=== PATIENT | female | born 1995 | race Caucasian/White ===

== ENCOUNTER 2019-02-06 04:05 | Emergency (ER) | payer BC ==
[2019-02-06 06:45] LABS: ABSOLUTE BASOPHILS # (AUTO) 0.1 10^3/uL (0.0-0.2); ABSOLUTE EOSINOPHILS # (AUTO) 0.2 10^3/uL (0.0-0.6); ABSOLUTE MONOCYTES (AUTO) 0.8 10^3/uL (0.1-1.4); ABSOLUTE NEUT (AUTO) 7.7 10^3/uL (1.7-8.2); BASOPHILS % (AUTO) 0.5 % (0-2); EOSINOPHILS % (AUTO) 1.5 % (0-6); HEMATOCRIT 41.5 % (36.0-47.0); HEMOGLOBIN 13.8 g/dL (12.0-15.5); LYMPHOCYTES % (AUTO) 18.6 % (13-45); MEAN CORPUSCULAR HEMOGLOBIN 26.1 pg (27.0-33.4); MEAN CORPUSCULAR HGB CONC 33.3 g/dL (32.0-36.0); MEAN CORPUSCULAR VOLUME 78 fl (80-97); MONOCYTES % (AUTO) 7.1 % (3-13); PLATELET COUNT 189 10^3/uL (150-450); RED BLOOD COUNT 5.29 10^6/uL (3.72-5.28); RED CELL DISTRIBUTION WIDTH 13.9 % (11.5-14.0); SEGMENTED NEUTROPHILS % (AUTO) 72.3 % (42-78); TOTAL CELLS COUNTED % (AUTO) 100 %; WHITE BLOOD COUNT 10.7 10^3/uL (4.0-10.5)
[2019-02-06 06:55] LABS: ALANINE AMINOTRANSFERASE 35 U/L (9-52); ALBUMIN 4.4 g/dL (3.5-5.0); ALKALINE PHOSPHATASE 73 U/L (38-126); ANION GAP 11 (5-19); ASPARTATE AMINO TRANSFERASE 23 U/L (14-36); BILIRUBIN,DIRECT 0.3 mg/dL (0.0-0.4); BILIRUBIN,TOTAL 0.4 mg/dL (0.2-1.3); BLOOD UREA NITROGEN 9 mg/dL (7-20); CALCIUM 10.3 mg/dL (8.4-10.2); CARBON DIOXIDE 26 mmol/L (22-30); CHLORIDE 102 mmol/L (98-107); GLUCOSE 90 mg/dL (75-110); LIPASE 65.3 U/L (23-300); POTASSIUM 4.2 mmol/L (3.6-5.0); SODIUM 138.6 mmol/L (137-145); TOTAL PROTEIN 7.2 g/dL (6.3-8.2)
[2019-02-06 07:17] LABS: APPEARANCE,URINE CLOUDY; BILIRUBIN,URINE NEGATIVE (NEGATIVE); CALCIUM OXALATE CRYSTALS,URINE MANY /HPF; COLOR,URINE YELLOW; GLUCOSE, URINE NEGATIVE (NEGATIVE); KETONES,URINE NEGATIVE (NEGATIVE); LEUKOCYTE ESTERASE,URINE NEGATIVE (NEGATIVE); NITRITE,URINE NEGATIVE (NEGATIVE); PROTEIN,URINE NEGATIVE (NEGATIVE); URINE SPECIFIC GRAVITY 1.012; UROBILINOGEN,URINE NEGATIVE mg/dL (<2.0)
--- NOTE | 2019-02-06 07:46 | ER Document Report ---
ED Medical Screen (RME) - General Chief Complaint: Abdominal Pain Stated Complaint: ABDOMINAL PAIN, DIARRHEA Time Seen by Provider: 02/06/19 07:37 Notes: Patient is a 23-year-old female who presents emergency department with a chief complaint of abdominal and pelvic pain. She states that her pain started yesterday and she ended up having diarrhea this morning. She states that her diarrhea is pink and watery. She also states that she has back pain. Her last menstrual cycle was in November. She does have the Nexplanon control and st ates that her menstrual cycles are irregular. She took a home test this morning and it was negative. She does feel nauseous, but has not vomited. She also states that she did not have a bowel movement for weekend now she has diarrhea. Exam: Mild tenderness in all abdominal quadrants. I have greeted and performed a rapid initial assessment of this patient. A comprehensive ED assessment and evaluation of the patient, analysis of test results and completion of medical decision making process will be conducted by an additional ED providers. TRAVEL OUTSIDE OF THE [place] IN LAST 30 DAYS: No - Related Data Allergies/Adverse Reactions: doxycycline Allergy (Verified 02/06/19 06:56) Sulfa (Sulfonamide Antibiotics) Allergy (Verified 02/06/19 06:56) Past Medical History - Social History Chew tobacco use (# tins/day): No Frequency of alcohol use: None Drug Abuse: None Renal/ Medical History: Denies: Hx Peritoneal Dialysis Physical Exam - Vital signs Vitals: Temp Pulse Pulse Ox 98.5 F 101 H 96 02/06/19 04:17 02/06/19 04:17 02/06/19 04:17 Course - Vital Signs Vital signs: Temp Pulse Resp BP Pulse Ox 98.5 F 90 134/86 H 100 02/06/19 04:18 02/06/19 05:38 02/06/19 05:38 02/06/19 05:38 - Laboratory Result Diagrams: 02/06/19 05:54 02/06/19 05:54 Laboratory results interpreted by me: 02/06/19 02/06/19 05:54 05:54 WBC 10.7 H RBC 5.29 H MCV 78 L MCH 26.1 L Calcium 10.3 H
--- NOTE | 2019-02-06 08:45 | ER Document Report ---
ED General - General Chief Complaint: Abdominal Pain Stated Complaint: ABDOMINAL PAIN, DIARRHEA Time Seen by Provider: 02/06/19 07:37 Mode of Arrival: Ambulatory Information source: Patient Notes: Patient presents emergency department with complaints of constipation for the past week and a half and then last night she had 3 episodes of diarrhea and noted the last episode as pink blood-tinged. She denies fever vomiting. Reports she usually has a bowel movement every other day or once a day. Reports abdominal pain. Denies past medical history of IBS Crohn's. Reports she is been eating drinking as normal. Declines antinausea medicine. TRAVEL OUTSIDE OF THE [place] IN LAST 30 DAYS: No - HPI Onset: Last week Onset/Duration: Persistent Quality of pain: Cramping Severity: Severe Pain Level: 4 Associated symptoms: Diarrhea, Nausea Exacerbated by: Denies Relieved by: Denies - Related Data Allergies/Adverse Reactions: doxycycline Allergy (Verified 02/06/19 06:56) Sulfa (Sulfonamide Antibiotics) Allergy (Verified 02/06/19 06:56) Past Medical History - General Last Menstrual Period: november - Social History Smoking Status: Never Smoker Chew tobacco use (# tins/day): No Frequency of alcohol use: None Drug Abuse: None Family History: None Patient has suicidal ideation: No Patient has homicidal ideation: No Endocrine Medical History: Reports: Hx Hypothyroidism Renal/ Medical History: Denies: Hx Peritoneal Dialysis GI Medical History: Denies: Hx Crohn's Disease, Hx Irritable Bowel Surgical Hx: Negative Review of Systems - Review of Systems Notes: Review HPI for review of systems., All other systems negative Physical Exam - Vital signs Vitals: Temp Pulse Pulse Ox 98.5 F 101 H 96 02/06/19 04:17 02/06/19 04:17 02/06/19 04:17 - Notes Notes: PHYSICAL EXAMINATION: GENERAL: Well-appearing and in no acute distress laughing with friend at bedside HEAD: Atraumatic, normocephalic. EYES: Pupils equal round and reactive to light, extraocular movements intact, sclera anicteric, conjunctiva are normal. ENT: nares patent, oropharynx clear without exudates. Moist mucous membranes. NECK: Normal range of motion, supple without lymphadenopathy LUNGS: CTAB and equal. No wheezes rales or rhonchi. HEART: Regular rate and rhythm without murmurs ABDOMEN: Soft, no tenderness. No guarding, no rebound denies pain when palpated EXTREMITIES: Normal range of motion, no pitting edema. No cyanosis. NEUROLOGICAL: Cranial nerves grossly intact. PSYCH: Normal mood, normal affect. SKIN: Warm, Dry, normal turgor, no rashes or lesions noted - Rectal Tenderness: No Stool: Heme negative Course - Re-evaluation Re-evalutation: 02/06/19 08:45 Labs unremarkable rectal negative for bleed 02/06/19 09:55 KUB negative patient has not had any further diarrhea since arrival. Patient is laughing happy having fun with her friend at the bedside. She will be discharged on instructions on huli-fxi-lnvyuad antidiarrhea as indicated follow- up with her primary care provider, for further symptoms return to the emergency department Dictation of this chart was performed using voice recognition software; therefore, there may be some unintended grammatical errors. - Vital Signs Vital signs: Temp Pulse Resp BP Pulse Ox 98.5 F 90 134/86 H 100 02/06/19 04:18 02/06/19 05:38 02/06/19 05:38 02/06/19 05:38 - Laboratory Result Diagrams: 02/06/19 05:54 02/06/19 05:54 Laboratory results interpreted by me: 02/06/19 02/06/19 05:54 05:54 WBC 10.7 H RBC 5.29 H MCV 78 L MCH 26.1 L Calcium 10.3 H - Diagnostic Test Radiology reviewed: Image reviewed, Reports reviewed - EXAM DESCRIPTION: KUB/ABDOMEN (SINGLE VIEW) COMPLETED DATE/TIME: 02/06/2019 9:14 am REASON FOR STUDY: abd pain, hx constipation COMPARISON: None. NUMBER OF VIEWS: One view. TECHNIQUE: Supine radiographic image of the abdomen acquired. LIMITATIONS: None. FINDINGS: BOWEL GAS PATTERN: Normal bowel gas pattern. No dilated loops. CALCIFICATIONS: No suspicious calcifications. SOFT TISSUES: No gross mass or suggestion of organomegaly. HARDWARE: None in the abdomen. BONES: No acute fracture. No worrisome bone lesions. OTHER: No other signi ficant finding. IMPRESSION: NO RADIOGRAPHIC EVIDENCE FOR ACUTE ABDOMINAL DISEASE. Discharge - Discharge Clinical Impression: Abdominal pain Qualifiers: Abdominal location: generalized Qualified Code(s): R10.84 - Generalized abdominal pain Diarrhea Qualifiers: Diarrhea type: unspecified type Qualified Code(s): R19.7 - Diarrhea, unspecified Condition: Stable Disposition: HOME, SELF-CARE Instructions: Abdominal Pain ([facility]), Diarrhea, Nonspecific ([facility]), Family Physicians / Practices, OTC Antidiarrhea Medication ([facility]) Additional Instructions: *You have been evaluated for abdominal pain, diarrhea *Take OTC medication as indicated for diarrhea *Follow up with a primary care provider within one week for recheck *Return to ED for worsening condition, changes, needs *Return to ED if not better in 24 hours Monitor your blood pressure. Your blood pressure was elevated today. This may be because you were anxious, in pain or because you need medication. It is important to follow up with your primary care provider for full evaluation. Forms: Elevated Blood Pressure
--- NOTE | 2019-02-06 09:24 | RADIOLOGY REPORT (SQ) ---
EXAM DESCRIPTION: KUB/ABDOMEN (SINGLE VIEW) COMPLETED DATE/TIME: 02/06/2019 9:14 am REASON FOR STUDY: abd pain, hx constipation COMPARISON: None. NUMBER OF VIEWS: One view. TECHNIQUE: Supine radiographic image of the abdomen acquired. LIMITATIONS: None. FINDINGS: BOWEL GAS PATTERN: Normal bowel gas pattern. No dilated loops. CALCIFICATIONS: No suspicious calcifications. SOFT TISSUES: No gross mass or suggestion of organomegaly. HARDWARE: None in the abdomen. BONES: No acute fracture. No worrisome bone lesions. OTHER: No other significant finding. IMPRESSION: NO RADIOGRAPHIC EVIDENCE FOR ACUTE ABDOMINAL DISEASE. TECHNICAL DOCUMENTATION: JOB ID: [id number] [employer]- All Rights Reserved Reading location - IP/workstation name: [email or web address]
[2019-02-06 10:36] VITALS: BP 139/91
== END 2019-02-06 10:36 | disposition home or self-care (01) ==
LOC: ER 04:05
DX: R10.84 Generalized abdominal pain (principal); R19.7 Diarrhea, unspecified; Z88.1 Allergy status to other antibiotic agents; Z88.2 Allergy status to sulfonamides; E03.9 Hypothyroidism, unspecified
CPT/HCPCS: 36415; 74018; 80053; 81001; 81025; 83690; 85025; 99284

== ENCOUNTER 2019-02-09 17:31 | Emergency (ER) | payer BC ==
[2019-02-09] MEDS ORDERED: ONDANSETRON 4 MG TAB.RAPDIS PO ONE (20:13)
--- NOTE | 2019-02-09 20:13 | ER Document Report ---
ED Medical Screen (RME) - General Chief Complaint: Abdominal Pain Stated Complaint: ABDOMINAL PAIN Time Seen by Provider: 02/09/19 20:06 TRAVEL OUTSIDE OF THE [place] IN LAST 30 DAYS: No - HPI Notes: 02/09/19 20:12 Patient is a 23-year-old female no significant past medical history who presents complaining of "early symptoms." Patient states that she has been having nausea, vomiting, breast tenderness, mood changes over the past several days. Patient states that she is living with a friend who is 6 months and patient is here requesting a blood test as she has had negative tests at home with her urine. Patient states that she is also having lower pelvic pains without any vaginal discharge, odor, or bleeding. Her last menstrual cycle was in November, but she is usually irregular. She is otherwise urinating normally and is no longer having diarrhea from her visit 3 days ago that was noted then. Denies MOTLEY, fever, neck pain, URI, CP, SOB, dysuria, back pain, or rash. I have treated and performed a rapid initial assessment of this patient. A comprehensive ED assessment and evaluation of the patient, analysis of test results and completion of medical decision making process will be conducted by additional ED providers. PHYSICAL EXAMINATION: GENERAL: Well-appearing, well-nourished and in no acute distress. A&Ox4. Answers questions appropriately. LUNGS: Breath sounds clear to auscultation bilaterally and equal. No wheezes rales or rhonchi. HEART: Regular rate and rhythm without murmurs, rubs, gallops. ABDOMEN: Obese. Soft, nondistended abdomen. No guarding, no rebound. Normal bowel sounds present. No CVA tenderness bilaterally. + mild lower abd tenderness (cannot elicit thorough abd exam w/o bed, however). - Related Data Allergies/Adverse Reactions: doxycycline Allergy (Verified 02/06/19 06:56) Sulfa (Sulfonamide Antibiotics) Allergy (Verified 02/06/19 06:56) Past Medical History - Social History Chew tobacco use (# tins/day): No Frequency of alcohol use: Social Drug Abuse: None Endocrine Medical History: Reports: Hx Hypothyroidism Renal/ Medical History: Denies: Hx Peritoneal Dialysis GI Medical History: Denies: Hx Crohn's Disease, Hx Irritable Bowel Psychiatric Medical History: Reports: Hx Bipolar Disorder Physical Exam - Vital signs Vitals: Temp Pulse Resp BP Pulse Ox 98.0 F 86 20 154/96 H 100 02/09/19 18:25 02/09/19 18:25 02/09/19 18:25 02/09/19 18:25 02/09/19 18:25 Course - Vital Signs Vital signs: Temp Pulse Resp BP Pulse Ox 98.0 F 86 20 154/96 H 100 02/09/19 18:25 02/09/19 18:25 02/09/19 18:25 02/09/19 18:25 02/09/19 18:25
--- NOTE | 2019-02-09 21:41 | RADIOLOGY REPORT (SQ) ---
US PELVIS HISTORY: Pelvic pain. COMPARISON: None. TECHNIQUE: Grayscale, color Doppler, and spectral Doppler ultrasound images of the pelvis were obtained. FINDINGS: The uterus is anteverted and measures 7.6 x 4.6 x 3.5 cm the endometrium is 3 mm in thickness. The cervix is 2 cm in length. Both ovaries are normal in size and contain normal follicles, with the right ovary measuring 2.8 cm and the left ovary measuring 4.5 cm. There is a 4.5 cm anechoic cyst in the left ovary. Normal color Doppler blood flow is seen in both ovaries. No pelvic free fluid. IMPRESSION: 4.5 cm simple left ovarian cyst. No follow-up imaging is recommended. Reference: Radiology 2010 Apr;256(3):943-49
[2019-02-09] MEDS ORDERED: ONDANSETRON 4 MG TAB.RAPDIS ONE (22:46)
[2019-02-09 23:17] LABS: ABSOLUTE BASOPHILS # (AUTO) 0.1 10^3/uL (0.0-0.2); ABSOLUTE EOSINOPHILS # (AUTO) 0.2 10^3/uL (0.0-0.6); ABSOLUTE LYMPHOCYTES (AUTO) 2.4 10^3/uL (0.5-4.7); ABSOLUTE MONOCYTES (AUTO) 0.7 10^3/uL (0.1-1.4); BASOPHILS % (AUTO) 0.5 % (0-2); EOSINOPHILS % (AUTO) 1.5 % (0-6); HEMATOCRIT 40.5 % (36.0-47.0); HEMOGLOBIN 13.4 g/dL (12.0-15.5); LYMPHOCYTES % (AUTO) 23.4 % (13-45); MEAN CORPUSCULAR HEMOGLOBIN 25.8 pg (27.0-33.4); MEAN CORPUSCULAR VOLUME 78 fl (80-97); MONOCYTES % (AUTO) 6.4 % (3-13); PLATELET COUNT 310 10^3/uL (150-450); RED BLOOD COUNT 5.18 10^6/uL (3.72-5.28); RED CELL DISTRIBUTION WIDTH 14.3 % (11.5-14.0); SEGMENTED NEUTROPHILS % (AUTO) 68.2 % (42-78); TOTAL CELLS COUNTED % (AUTO) 100 %; WHITE BLOOD COUNT 10.3 10^3/uL (4.0-10.5)
[2019-02-09 23:32] LABS: ALANINE AMINOTRANSFERASE 37 U/L (9-52); ALBUMIN 4.3 g/dL (3.5-5.0); ALKALINE PHOSPHATASE 69 U/L (38-126); ANION GAP 8 (5-19); ASPARTATE AMINO TRANSFERASE 30 U/L (14-36); BILIRUBIN,DIRECT 0.2 mg/dL (0.0-0.4); BILIRUBIN,TOTAL 0.4 mg/dL (0.2-1.3); BLOOD UREA NITROGEN 10 mg/dL (7-20); CALCIUM 10.3 mg/dL (8.4-10.2); CARBON DIOXIDE 26 mmol/L (22-30); CHLORIDE 106 mmol/L (98-107); GLUCOSE 80 mg/dL (75-110); SODIUM 139.9 mmol/L (137-145); TOTAL PROTEIN 7.1 g/dL (6.3-8.2)
[2019-02-10 02:20] LABS: APPEARANCE,URINE CLOUDY; BILIRUBIN,URINE NEGATIVE (NEGATIVE); COLOR,URINE YELLOW; GLUCOSE, URINE NEGATIVE (NEGATIVE); KETONES,URINE NEGATIVE (NEGATIVE); LEUKOCYTE ESTERASE,URINE MODERATE (NEGATIVE); NITRITE,URINE NEGATIVE (NEGATIVE); PROTEIN,URINE NEGATIVE (NEGATIVE); URINE SPECIFIC GRAVITY 1.019; UROBILINOGEN,URINE NEGATIVE mg/dL (<2.0)
[2019-02-10] MEDS ORDERED: CEPHALEXIN 500 MG CAPSULE PO ONE (03:54)
[2019-02-10 05:03] LABS: RBCS (WET MOUNT) NO RBCS SEEN; T.VAGINALIS (WET MOUNT) NO TRICHOMONAS SEEN; WBCS (WET MOUNT) NO WBCS SEEN; YEAST (WET MOUNT) NO YEAST SEEN
--- NOTE | 2019-02-10 05:12 | ER Document Report ---
ED General - General Chief Complaint: Abdominal Pain Stated Complaint: ABDOMINAL PAIN Time Seen by Provider: 02/09/19 20:06 Notes: Patient is a 23-year-old female presents with complaint of feeling as if she is . She says that she recently moved to the area and has a roommate who is . She says since last couple weeks she has had symptoms just like her roommate and that she has had some mood swings, breast soreness, intermi ttent nausea vomiting, and pelvic pain and cramping. No abnormal vaginal bleeding or discharge. No diarrhea. She currently takes psychiatric medications. She is on lithium. She has no other complaints at this time. No recent changes in the dosages of her medications. She was seen here a few days ago and her work-up was negative at that time and she was discharged home. TRAVEL OUTSIDE OF THE [place] IN LAST 30 DAYS: No - Related Data Allergies/Adverse Reactions: doxycycline Allergy (Verified 02/06/19 06:56) Sulfa (Sulfonamide Antibiotics) Allergy (Verified 02/06/19 06:56) Past Medical History - Social History Smoking Status: Never Smoker Chew tobacco use (# tins/day): No Frequency of alcohol use: Social Drug Abuse: None Family History: None Patient has suicidal ideation: No Patient has homicidal ideation: No Endocrine Medical History: Reports: Hx Hypothyroidism Renal/ Medical History: Denies: Hx Peritoneal Dialysis GI Medical History: Denies: Hx Crohn's Disease, Hx Irritable Bowel Psychiatric Medical History: Reports: Hx Bipolar Disorder Review of Systems - Review of Systems Notes: My Normal Review Basic REVIEW OF SYSTEMS: CONSTITUTIONAL : Denies fever, chills, or sweats. Denies recent illness. RESPIRATORY: Denies cough, cold, or chest congestion. Denies shortness of breath, difficulty breathing, or wheezing. GASTROINTESTINAL: Lower abdominal pain. Occasional nausea and vomiting. GENITOURINARY: Denies difficulty urinating, painful urination, burning, frequency, or blood in urine. FEMALE GENITOURINARY: Denies vaginal bleeding, abnormal or irregular periods. MUSCULOSKELETAL: Denies neck or back pain or joint pain or swelling. SKIN: Denies rash or skin lesions. NEUROLOGICAL: Denies altered mental status or loss of consciousness. Denies headache. Denies weakness or paralysis or loss of use of either side. Denies problems with gait or speech. Denies sensory or motor loss. PSYCHIATRIC: Denies anxiety or stress or depression. ALL OTHER SYSTEMS REVIEWED AND NEGATIVE. Physical Exam - Vital signs Vitals: Temp Pulse Resp BP Pulse Ox 98.0 F 86 20 154/96 H 100 02/09/19 18:25 02/09/19 18:25 02/09/19 18:25 02/09/19 18:25 02/09/19 18:25 - Notes Notes: General Appearance: Well nourished, alert, cooperative, no acute distress, no obvious discomfort. Well-appearing. Vitals: reviewed, See vital signs table. Head: no swelling or tenderness to the head Eyes: PERRL, EOMI, Conjuctiva clear Mouth: No decreasd moisture Throat: No tonsillar inflammation, No airway obstruction, No lymphadenopathy Neck: Supple, no neck tenderness, No thyromegaly Lungs: No wheezing, No rales, No rhonci, No accessory muscle use, good air exchange bilaterally. Heart: Normal rate, Regular rythm, No murmur, no rub Abdomen: Normal BS, soft, No rigidity, mild suprapubic abdominal tenderness to palpation., No guarding, no rebound, no abdominal masses, no organomegaly Pelvic exam: Pelvic exam performed with female chemical production technician, Alison Morillo, at bedside. Patient had normal external genitalia. No abnormal vaginal discharge or bleeding. No pain on exam peer Extremities: strength 5/5 in all extremities, good pulses in all extremities, no swelling or tenderness in the extremities, no edema. Skin: warm, dry, appropriate color, no rash Neuro: speech clear, oriented x 3, normal affect, responds appropriately to questions. Course - Re-evaluation Re-evalutation: 02/10/19 06:26 Patient's exam did not show any concerning findings. Patient's initially thought that she had to be however her test was negative. She then was concerned that maybe there is something more seriously wrong with her. We did do a large work-up and there is nothing concerning other than some bacteriuria for which we will place her on antibiotic for. I did explain to the patient the right and I do not see any life-threatening serious causes of her symptoms. We will treat her for possible UTI. Of send her urine for culture. I strongly encouraged her to have a low threshold to return to ER she has high fevers, intractable vomiting, severe pain, or she feels that she is worsening in any way. Patient agrees with plan and will be discharged home. Dictation of this chart was performed using voice recognition software; therefore, there may be some unintended grammatical errors. - Vital Signs Vital signs: Temp Pulse Resp BP Pulse Ox 98.1 F 82 20 142/86 H 100 02/10/19 05:00 02/10/19 05:00 02/10/19 05:00 02/10/19 05:00 02/10/19 05:00 - Laboratory Result Diagrams: 02/09/19 23:00 02/09/19 23:00 Laboratory results interpreted by me: 02/09/19 02/09/19 02/09/19 23:00 23:00 23:00 MCV 78 L MCH 25.8 L RDW 14.3 H Calcium 10.3 H Ur Leukocyte Esterase [place] 0.4 L 02/10/19 01:20 MCV MCH RDW Calcium Ur Leukocyte Esterase MODERATE H [place] Discharge - Discharge Clinical Impression: Abdominal pain Qualifiers: Abdominal location: lower abdomen, unspecified Qualified Code(s): R10.30 - Lo wer abdominal pain, unspecified Vomiting Qualifiers: Vomiting type: unspecified Vomiting Intractability: unspecified Nausea presence: with nausea Qualified Code(s): R11.2 - Nausea with vomiting, unspecified Condition: Good Disposition: HOME, SELF-CARE Additional Instructions: Currently your laboratory evaluation is unremarkable except for some evidence of infection and bacteria in your urine. We will place you on antibiotics for the next 5 days. Please take as prescribed. I will also prescribe you medication called Zofran. Please take this as prescribed. Please return to the ER if you are still having pain or vomiting or symptoms after 3 to 4 days of treatment. Please return to the ER immediately if you have fevers, intractable vomiting, or worsening pain. We did send off of a vaginal swab to look for evidence of gonorrhea and chlamydia. This should come back in 24 hours. If it is positive we will call you. If you do not hear from us after 24 hours you can call the culture callback number at [phone]. Prescriptions: Cephalexin Monohydrate [Keflex 500 mg Capsule] 500 mg PO BID 5 Days #10 capsule Ondansetron [Zofran Odt 4 mg Tablet] 1 tab PO Q4H PRN #10 tab.rapdis PRN Reason: For Nausea/Vomiting
[2019-02-10 05:25] VITALS: BP 142/86
[2019-02-10 06:25] LABS: CHLAM PCR NOT DETECTED (NOT DETECT)
== END 2019-02-10 05:25 | disposition home or self-care (01) ==
LOC: ER 17:31
DX: R10.30 Lower abdominal pain, unspecified (principal); R11.2 Nausea with vomiting, unspecified; Z88.1 Allergy status to other antibiotic agents; Z88.2 Allergy status to sulfonamides
CPT/HCPCS: 99284; 36415; 87210; 80178; 84703; 85025; 80053; 81001; 87491; 87591; 76830; 93976; S0119

== ENCOUNTER 2019-05-02 00:49 | Emergency (ER) | payer BC, MEDICAID ==
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
[2019-05-02 03:10] LABS: ABSOLUTE EOSINOPHILS # (AUTO) 0.1 10^3/uL (0.0-0.6); ABSOLUTE LYMPHOCYTES (AUTO) 2.3 10^3/uL (0.5-4.7); ABSOLUTE MONOCYTES (AUTO) 0.6 10^3/uL (0.1-1.4); ABSOLUTE NEUT (AUTO) 6.1 10^3/uL (1.7-8.2); BASOPHILS % (AUTO) 0.5 % (0-2); HEMATOCRIT 38.4 % (36.0-47.0); HEMOGLOBIN 12.5 g/dL (12.0-15.5); LYMPHOCYTES % (AUTO) 25.1 % (13-45); MEAN CORPUSCULAR HEMOGLOBIN 25.5 pg (27.0-33.4); MEAN CORPUSCULAR HGB CONC 32.5 g/dL (32.0-36.0); MEAN CORPUSCULAR VOLUME 78 fl (80-97); MONOCYTES % (AUTO) 6.4 % (3-13); PLATELET COUNT 286 10^3/uL (150-450); RED BLOOD COUNT 4.91 10^6/uL (3.72-5.28); RED CELL DISTRIBUTION WIDTH 13.8 % (11.5-14.0); TOTAL CELLS COUNTED % (AUTO) 100 %; WHITE BLOOD COUNT 9.1 10^3/uL (4.0-10.5)
[2019-05-02 03:30] LABS: ALKALINE PHOSPHATASE 58 U/L (38-126); ANION GAP 8 (5-19); ASPARTATE AMINO TRANSFERASE 27 U/L (14-36); BILIRUBIN,DIRECT 0.3 mg/dL (0.0-0.4); BILIRUBIN,TOTAL 0.6 mg/dL (0.2-1.3); BLOOD UREA NITROGEN 8 mg/dL (7-20); CALCIUM 10.1 mg/dL (8.4-10.2); CARBON DIOXIDE 26 mmol/L (22-30); CHLORIDE 106 mmol/L (98-107); GLUCOSE 90 mg/dL (75-110); POTASSIUM 3.8 mmol/L (3.6-5.0); TOTAL PROTEIN 6.9 g/dL (6.3-8.2)
[2019-05-02 03:37] LABS: URINE AMPHETAMINES SCREEN NEGATIVE; URINE BARBITURATES SCREEN NEGATIVE; URINE BENZODIAZEPINES SCREEN NEGATIVE; URINE COCAINE SCREEN NEGATIVE; URINE MARIJUANA (THC) SCREEN NEGATIVE; URINE METHADONE SCREEN NEGATIVE; URINE PHENCYCLIDINE SCREEN NEGATIVE
[2019-05-02 03:49] LABS: ALCOHOL < 10 mg/dL (NONE DETECTED); LITHIUM < 0.2 mEq/L (0.6-1.2)
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
[2019-05-02 05:17] VITALS: BP 136/78
== END 2019-05-02 05:10 | disposition home or self-care (01) ==
LOC: ER 00:49
DX: T50.901A Poisoning by unspecified drugs, medicaments and biological substances, accidental (unintentional), initial encounter (principal); R42 Dizziness and giddiness; Y92.009 Unspecified place in unspecified non-institutional (private) residence as the place of occurrence of the external cause; E03.9 Hypothyroidism, unspecified; F31.9 Bipolar disorder, unspecified; Z79.899 Other long term (current) drug therapy; Z88.1 Allergy status to other antibiotic agents; Z88.2 Allergy status to sulfonamides
CPT/HCPCS: 36415; 80053; 80178; 80307; 81025; 85025; 99284

== ENCOUNTER 2019-05-28 10:48 | Emergency (ER) | payer OTHER, BC, MEDICAID ==
[2019-05-28 10:54] VITALS: BP 144/87
--- NOTE | 2019-05-28 11:09 | ER Document Report ---
HPI - HPI Time Seen by Provider: 05/28/19 11:03 Notes: Patient is a 23-year-old female no significant past medical history presents complaining of left dorsal foot pain status post injury 2 days ago. Patient states that a wooden pallet fell on her foot. Patient states that no skin was broken and she has not noticed any swelling or bruising. Patient states that she is able to ambulate otherwise. Pain does not radiate. Denies any headache, fever, URI, sore throat, chest pain, palpitations, syncope, cough, shortness of breath, wheeze, dyspnea, abdominal pain, nausea/vomiting/diarrhea, urinary retention, dysuria, hematuria, numbness/tingling, muscle paralysis/weakness, or rash. - ROS Systems Reviewed and Negative: Yes All other systems reviewed and negative - REPRODUCTIVE Reproductive: DENIES: : Past Medical History - Social History Smoking Status: Never Smoker Family History: None Endocrine Medical History: Reports: Hx Hypothyroidism Renal/ Medical History: Denies: Hx Peritoneal Dialysis GI Medical History: Denies: Hx Crohn's Disease, Hx Irritable Bowel Psychiatric Medical History: Reports: Hx Bipolar Disorder - Immunizations Immunizations up to date: Yes Vertical Provider Document - CONSTITUTIONAL Agree With Documented VS: Yes Notes: PHYSICAL EXAMINATION: GENERAL: Well-appearing, well-nourished and in no acute distress. LUNGS: Breath sounds clear to auscultation bilaterally and equal. No wheezes rales or rhonchi. HEART: Regular rate and rhythm without murmurs, rubs, gallops. Musculoskeletal: Lt foot/ankle: No ecchymosis, swelling, or deformity. FROM to passive/active. Strength 5+/5. N/V intact distal. + tenderness to the dorsal distal metatarsals. No other bony tenderness of the ankle/foot. Achilles intact. Lis Franc maneuver neg. Anterior drawer neg. Extremities: No cyanosis, clubbing, or edema b/l. Peripheral pulses 2+. Capillary refill less than 3 seconds. NEUROLOGICAL: Normal speech, limping gait. Normal sensory, motor exams PSYCH: Normal mood, normal affect. SKIN: Warm, Dry, normal turgor, no rashes or lesions noted. - INFECTION CONTROL TRAVEL OUTSIDE OF THE [place] IN LAST 30 DAYS: No Course - Re-evaluation Re-evalutation: 05/28/19 Patient is an afebrile, well-hydrated, 23-year-old female who presents to the ED with left foot pain which I suspect to be a contusion. Vitals are acceptable without any significant tachycardia, tachypnea, or hypoxia. PE is otherwise unremarkable for any neurovascular compromise, obvious tendon/ligament rupture, obvious fracture/dislocation, septic joint. X-ray was unremarkable for any acute pathology. Patient declined any Tylenol or ice. Patient is nontoxic- appearing. Patient is able to ambulate and weight-bear. No other labs or imaging warranted at this time based on H&P. Conservative measures otherwise for symptoms. Recheck with your PCM in 3-5 days. Consider consult orthopedics. Return to the ED with any worsening/concerning symptoms otherwise as reviewed in discharge. Patient is in agreement. - Vital Signs Vital signs: Temp Pulse Resp BP Pulse Ox 97.8 F 77 19 144/87 H 97 05/28/19 10:52 05/28/19 10:52 05/28/19 10:52 05/28/19 10:52 05/28/19 10:52 Discharge - Discharge Clinical Impression: Left foot pain Condition: Stable Disposition: HOME, SELF-CARE Additional Instructions: Rest, Ice, Compression, Elevation Tylenol/ibuprofen as needed Light stretches daily Strength exercises as able Moist heat and massage may help F/u with your PCP in 3-5 days for a recheck Consider consult(s) with Orthopedics/physical therapy for ongoing/worsening symptoms Return to the ED with any worsening symptoms and/or development of fever, headache, chest pain, palpitations, syncope, shortness of breath, trouble breathing, abdominal pain, n/v/d, muscle weakness/paralysis, numbness/tingling, swelling, redness, or other worsening symptoms that are concerning to you. Forms: Elevated Blood Pressure Referrals: [facility] [Provider Group] - Follow up as needed
--- NOTE | 2019-05-28 11:54 | RADIOLOGY REPORT (SQ) ---
EXAM DESCRIPTION: FOOT LEFT COMPLETE COMPLETED DATE/TIME: 05/28/2019 11:17 am REASON FOR STUDY: distal foot pain s/p crush injury COMPARISON: None. NUMBER OF VIEWS: Three views. TECHNIQUE: AP, lateral and oblique radiographic images acquired of the left foot. LIMITATIONS: None. FINDINGS: MINERALIZATION: Normal. BONES: No acute fracture or dislocation. No worrisome bone lesions. JOINTS: No effusions. SOFT TISSUES: No soft tissue swelling. No foreign body. OTHER: No other significant finding. IMPRESSION: NEGATIVE STUDY OF THE LEFT FOOT. NO RADIOGRAPHIC EVIDENCE OF ACUTE INJURY. TECHNICAL DOCUMENTATION: JOB ID: [id number] [employer]- All Rights Reserved Reading location - IP/workstation name: [email or web address]
== END 2019-05-28 12:18 | disposition home or self-care (01) ==
LOC: ER 10:48
DX: M79.672 Pain in left foot (principal); W20.8XXA Other cause of strike by thrown, projected or falling object, initial encounter; Y99.0 Civilian activity done for income or pay; E03.9 Hypothyroidism, unspecified
CPT/HCPCS: 99283

== ENCOUNTER 2019-06-03 21:51 | Emergency (ER) | payer BC, MEDICAID ==
--- NOTE | 2019-06-03 23:38 | ER Document Report ---
ED Medical Screen (RME) - General Chief Complaint: Altered Mental Status Stated Complaint: CONFUSION Time Seen by Provider: 06/03/19 23:34 Mode of Arrival: Wheelchair Information source: Patient Notes: 23-year-old female presents to ED for complaint of confusion when she woke up. She states she woke up and did not know where she was then after while she figured out she was at home became worried so she called over to come to the ED. She states that since she is been in the emergency room she has been having uncontrollable shaking and twitching. She is aware of everything was going on while she is doing it but she is crying states she cannot stop it she does not know why she is doing it she does not have to stop it. She states she tries to breathe through it and she still drinks. She states she does have a history of anxiety bipolar and hypothyroidism. She drinks maybe once a week does not smoke or use any drugs works at the [employer] and lives alone. I have greeted and performed a rapid initial assessment of this patient. A comprehensive ED assessment and evaluation of the patient, analysis of test results and completion of medical decision making process will be conducted by an additional ED providers. TRAVEL OUTSIDE OF THE [place] IN LAST 30 DAYS: No - Related Data Allergies/Adverse Reactions: doxycycline Allergy (Verified 05/28/19 11:03) Sulfa (Sulfonamide Antibiotics) Allergy (Verified 05/28/19 11:03) Past Medical History - Social History Chew tobacco use (# tins/day): No Frequency of alcohol use: None Endocrine Medical History: Reports: Hx Hypothyroidism Renal/ Medical History: Denies: Hx Peritoneal Dialysis GI Medical History: Denies: Hx Crohn's Disease, Hx Irritable Bowel Psychiatric Medical History: Reports: Hx Bipolar Disorder - Immunizations Immunizations up to date: Yes Physical Exam - Vital signs Vitals: Temp Pulse Resp BP Pulse Ox 98.1 F 77 15 157/92 H 99 06/03/19 21:56 06/03/19 21:56 06/03/19 21:56 06/03/19 21:56 06/03/19 21:56 Course - Vital Signs Vital signs: Temp Pulse Resp BP Pulse Ox 98.1 F 77 15 157/92 H 99 06/03/19 21:56 06/03/19 21:56 06/03/19 21:56 06/03/19 21:56 06/03/19 21:56
[2019-06-04 00:38] LABS: ABSOLUTE BASOPHILS # (AUTO) 0.1 10^3/uL (0.0-0.2); ABSOLUTE EOSINOPHILS # (AUTO) 0.1 10^3/uL (0.0-0.6); ABSOLUTE MONOCYTES (AUTO) 0.5 10^3/uL (0.1-1.4); ABSOLUTE NEUT (AUTO) 4.7 10^3/uL (1.7-8.2); EOSINOPHILS % (AUTO) 1.3 % (0-6); HEMATOCRIT 41.6 % (36.0-47.0); HEMOGLOBIN 13.5 g/dL (12.0-15.5); LYMPHOCYTES % (AUTO) 27.7 % (13-45); MEAN CORPUSCULAR HEMOGLOBIN 25.1 pg (27.0-33.4); MEAN CORPUSCULAR HGB CONC 32.5 g/dL (32.0-36.0); MEAN CORPUSCULAR VOLUME 77 fl (80-97); MONOCYTES % (AUTO) 6.5 % (3-13); PLATELET COUNT 304 10^3/uL (150-450); RED BLOOD COUNT 5.38 10^6/uL (3.72-5.28); RED CELL DISTRIBUTION WIDTH 14.2 % (11.5-14.0); SEGMENTED NEUTROPHILS % (AUTO) 63.5 % (42-78); TOTAL CELLS COUNTED % (AUTO) 100 %; WHITE BLOOD COUNT 7.3 10^3/uL (4.0-10.5)
[2019-06-04 00:54] LABS: ALBUMIN 4.5 g/dL (3.5-5.0); ALKALINE PHOSPHATASE 69 U/L (38-126); ANION GAP 11 (5-19); ASPARTATE AMINO TRANSFERASE 26 U/L (14-36); BILIRUBIN,DIRECT 0.1 mg/dL (0.0-0.4); BILIRUBIN,TOTAL 0.4 mg/dL (0.2-1.3); BLOOD UREA NITROGEN 6 mg/dL (7-20); CALCIUM 10.4 mg/dL (8.4-10.2); CARBON DIOXIDE 24 mmol/L (22-30); CHLORIDE 105 mmol/L (98-107); GLUCOSE 88 mg/dL (75-110); POTASSIUM 3.5 mmol/L (3.6-5.0); TOTAL PROTEIN 7.7 g/dL (6.3-8.2)
[2019-06-04 01:08] LABS: APPEARANCE,URINE SLIGHTLY-CLOUDY; BILIRUBIN,URINE NEGATIVE (NEGATIVE); CALCIUM OXALATE CRYSTALS,URINE MODERATE /HPF; COLOR,URINE YELLOW; GLUCOSE, URINE NEGATIVE (NEGATIVE); KETONES,URINE TRACE mg/dL (NEGATIVE); LEUKOCYTE ESTERASE,URINE LARGE (NEGATIVE); NITRITE,URINE NEGATIVE (NEGATIVE); PROTEIN,URINE NEGATIVE (NEGATIVE); UROBILINOGEN,URINE NEGATIVE mg/dL (<2.0)
[2019-06-04] MEDS ORDERED: ONDANSETRON HCL INJ/PF 4 MG/2 ML SDV IV ONE (01:51)
[2019-06-04] MEDS ORDERED: LORAZEPAM INJ 2 MG/1 ML VIAL IV ONE (02:40)
[2019-06-04] MEDS ORDERED: KETOROLAC TROMETHAMINE INJ/PF 30 MG/1 ML SDV IV ONE (02:40)
--- NOTE | 2019-06-04 02:41 | ER Document Report ---
ED General - General Chief Complaint: Altered Mental Status Stated Complaint: CONFUSION Time Seen by Provider: 06/03/19 23:34 Primary Care Provider: [facility] [Provider Group] - Follow up as needed Mode of Arrival: Wheelchair Notes: Patient is a 23-year-old female that comes emergency department for chief complaint of feeling like she is in a fog, anxiety, and a headache. She states that she woke up from taking a nap just prior to going to work, when she woke up she felt like she did not know where she was, she started panicking, after this she came to the emergency department and then subsequently developed a headache after arrival to the emergency department with light sensitivity, throbbing headache in the front, and mild nausea. She states that she was given Zofran an d now she does not have nausea. She denies vomiting, neck stiffness, fever, focal numbness or weakness, or any other complaints at this time. She states she has a history of bipolar disorder but came off of her medications in April and has not resumed them on the remaining medical history reported is hypothyroidism. Reports occasional alcohol, denies recreational drugs. TRAVEL OUTSIDE OF THE [place] IN LAST 30 DAYS: No - Related Data Allergies/Adverse Reactions: doxycycline Allergy (Verified 06/04/19 00:38) Sulfa (Sulfonamide Antibiotics) Allergy (Verified 06/04/19 00:38) Past Medical History - General Information source: Patient - Social History Smoking Status: Never Smoker Chew tobacco use (# tins/day): No Frequency of alcohol use: None Lives with: Family Family History: None Patient has suicidal ideation: No Patient has homicidal ideation: No Endocrine Medical History: Reports: Hx Hypothyroidism Renal/ Medical History: Denies: Hx Peritoneal Dialysis GI Medical History: Denies: Hx Crohn's Disease, Hx Irritable Bowel Psychiatric Medical History: Reports: Hx Bipolar Disorder - Immunizations Immunizations up to date: Yes Review of Systems - Review of Systems Constitutional: No symptoms reported EENT: No symptoms reported Cardiovascular: No symptoms reported Respiratory: No symptoms reported Gastrointestinal: No symptoms reported Genitourinary: No symptoms reported Female Genitourinary: No symptoms reported Musculoskeletal: See HPI Skin: No symptoms reported Hematologic/Lymphatic: No symptoms reported Neurological/Psychological: See HPI Physical Exam - Vital signs Vitals: Temp Pulse Resp BP Pulse Ox 98.1 F 77 15 157/92 H 99 06/03/19 21:56 06/03/19 21:56 06/03/19 21:56 06/03/19 21:56 06/03/19 21:56 - Notes Notes: GENERAL: Alert, interacts well. No acute distress. HEAD: Normocephalic, atraumatic. EYES: Pupils equal, round, and reactive to light. Extraocular movements intact. ENT: Oral mucosa moist, tongue midline. Oropharynx unremarkable. Airway patent. Nares patent, no nasal septal hematoma, TM's intact. NECK: Full range of motion. Supple. Trachea midline. LUNGS: Clear to auscultation bilaterally, no wheezes, rales, or rhonchi. No respiratory distress. HEART: Regular rate and rhythm. No murmur ABDOMEN: Soft, non-tender. Non-distended. Bowel sounds present in all 4 quadrants. GENITOURINARY: Deferred EXTREMITIES: Moves all 4 extremities spontaneously. No edema, normal radial and dorsalis pedis pulses bilaterally. No cyanosis. BACK: no cervical, thoracic, lumbar midline tenderness. No saddle anesthesia, normal distal neurovascular exam. Moves all extremities in full range of motion. NEUROLOGICAL: Alert and oriented x3. Normal speech. Cranial nerves II through XII grossly intact. PSYCH: Patient speaks in an exaggerated shy voice although she does not appear to be shy. Unremarkable otherwise. SKIN: Warm, dry, normal turgor. No rashes or lesions noted. Course - Re-evaluation Re-evalutation: CBC and chemistry nonspecific. Urinalysis shows possible infection, I discussed this with patient but she declined treatment for this stating she does not have any symptoms of urinary tract infection including dysuria, abdominal pain, flank pain. Culture placed. Patient is telling me she is having a headache with photophobia and phonophobia as well as nausea but this did not start until after she arrived. She came because of anxiety episode after she woke up feeling confused. She is completely oriented on my exam, she has a completely normal neurological exam. She states she is having tics and tremors at home but she has none on my exam. Patient was given small amount of Ativan, Toradol, she was given nausea medicine earlier. On reevaluation she states her headache is completely gone. When I entered the room patient appeared to hear me and without looking at me appeared to be making jerking motions with her hands. She pointed out that she was rodricki ng tics and jerking motions, however I pointed out that I did notice her start making these when I entered the room. There appears to be a psychiatric component to these. Patient does not appear to have any neurological abnormality. However I did speak about both anxiety, psychiatric follow-up, and patient is also requesting a neurology referral. She was provided with this along with the psychiatric referral, she was provided with headache medication after we discussed this. Because of her easily resolving headache, nonspecific symptoms, very well appearance, neurologically normal exam, I have a very low suspicion of acute intracranial ab normality. Patient denies SI or HI. She is cooperative and calm on my reevaluation. She will be discharged with return precautions. Patient states understanding and agreement. - Vital Signs Vital signs: Temp Pulse Resp BP Pulse Ox 97.9 F 77 19 115/67 99 06/04/19 06:42 06/04/19 07:06 06/04/19 07:06 06/04/19 07:06 06/04/19 07:06 - Laboratory Result Diagrams: 06/04/19 00:00 06/04/19 00:00 Laboratory results interpreted by me: 06/04/19 06/04/19 06/04/19 00:00 00:00 00:37 RBC 5.38 H MCV 77 L MCH 25.1 L RDW 14.2 H Potassium 3.5 L BUN 6 L Calcium 10.4 H Urine Ketones TRACE H Urine Blood SMALL H Ur Leukocyte Esterase LARGE H Discharge - Discharge Clinical Impression: Twitching, Anxiety Headache Qualifiers: Headache type: unspecified Headache chronicity pattern: acute headache Intracta bility: not intractable Qualified Code(s): R51 - Headache Condition: Stable Disposition: HOME, SELF-CARE Additional Instructions: Your evaluation does not show any concerning findings at this time, your symptoms are most consistent with a migraine which was treated tonight. If needed take the Fioricet for migraines, if you continue to experience the unexplained twitching consider follow-up with the neurology referral listed below for additional evaluation and management. Follow-up with the [facility] referral for anxiety. Come back if you are worse including severe headache, vomiting, loss of vision, fever, or any other concerning symptoms. [facility] [address] [facility] [id number] Prescriptions: Butalb/Acetaminophen/Caffeine [Fioricet (50-325-40 mg) Tablet] 1 tab PO Q4HP PRN #20 tab PRN Reason: Forms: Return to Work Referrals: [facility] [Provider Group] - Follow up as needed
[2019-06-04 07:13] VITALS: BP 115/67
== END 2019-06-04 07:06 | disposition home or self-care (01) ==
LOC: ER 21:51
DX: R25.3 Fasciculation (principal); F41.9 Anxiety disorder, unspecified; R51 Headache; R41.82 Altered mental status, unspecified; E03.9 Hypothyroidism, unspecified; Z88.2 Allergy status to sulfonamides
CPT/HCPCS: 36415; 84703; 85025; 80053; 81001; J1885; J2060; J2405; 87086; 96374; 96375; 99284

== ENCOUNTER 2019-06-06 21:52 | Emergency (ER) | payer BC, MEDICAID ==
[2019-06-06 21:59] VITALS: BP 147/87
--- NOTE | 2019-06-07 00:24 | ER Document Report ---
Doctor's Note Notes: 06/07/19 00:22 I went into room 6 to interview and evaluate the patient. The patient was sitting, fully dressed, off of the bed. She was reluctant to answer any of my questions. She explained to me that she was very hungry and tired, she had not had a chance to eat all day. She works at the [employer], states she really was tired and wants to go home. She stated that she just wants to leave at this time. I explained to her that I did not interview nor evaluate her. Her presentation with shortness of breath and chest pain could be attributable to multiple problems, certainly including but not limited to acute coronary syndrome, pulmonary embolus, aortic dissection, or other significant cardiopulmonary disease. She states she understood this. I explained to her that there could be serious consequences for not identifying these conditions, including but certainly not limited to loss of lifestyle, heart attack, or . She voiced understanding and still states she does not want to stay in the emergency department to be evaluated. She plans to follow-up with her primary care provider. I explained to the patient that she could change her mind regarding being seen at any time, we would be happy to evaluate her. She voiced understanding. She signed an AGAINST MEDICAL ADVICE form with JAMES Gupta, as witness, and left the department without incident.
== END 2019-06-07 00:23 | disposition left against medical advice (07) ==
LOC: ER 21:52
DX: R07.9 Chest pain, unspecified (principal); R06.02 Shortness of breath

== ENCOUNTER 2019-06-14 07:05 | Emergency (ER) | payer BC, MEDICAID ==
[2019-06-14 09:40] LABS: ABSOLUTE EOSINOPHILS # (AUTO) 0.1 10^3/uL (0.0-0.6); ABSOLUTE LYMPHOCYTES (AUTO) 2.6 10^3/uL (0.5-4.7); ABSOLUTE MONOCYTES (AUTO) 0.6 10^3/uL (0.1-1.4); ABSOLUTE NEUT (AUTO) 4.8 10^3/uL (1.7-8.2); BASOPHILS % (AUTO) 0.5 % (0-2); EOSINOPHILS % (AUTO) 1.4 % (0-6); HEMATOCRIT 39.7 % (36.0-47.0); MEAN CORPUSCULAR HEMOGLOBIN 25.3 pg (27.0-33.4); MEAN CORPUSCULAR HGB CONC 32.7 g/dL (32.0-36.0); MEAN CORPUSCULAR VOLUME 78 fl (80-97); PLATELET COUNT 259 10^3/uL (150-450); RED BLOOD COUNT 5.12 10^6/uL (3.72-5.28); RED CELL DISTRIBUTION WIDTH 13.8 % (11.5-14.0); SEGMENTED NEUTROPHILS % (AUTO) 59.1 % (42-78); TOTAL CELLS COUNTED % (AUTO) 100 %; WHITE BLOOD COUNT 8.1 10^3/uL (4.0-10.5)
[2019-06-14 10:04] LABS: ALKALINE PHOSPHATASE 62 U/L (38-126); ANION GAP 11 (5-19); ASPARTATE AMINO TRANSFERASE 21 U/L (14-36); BILIRUBIN,DIRECT 0.1 mg/dL (0.0-0.4); BILIRUBIN,TOTAL 0.3 mg/dL (0.2-1.3); BLOOD UREA NITROGEN 7 mg/dL (7-20); CALCIUM 9.6 mg/dL (8.4-10.2); CARBON DIOXIDE 23 mmol/L (22-30); CHLORIDE 108 mmol/L (98-107); GLUCOSE 94 mg/dL (75-110); POTASSIUM 3.3 mmol/L (3.6-5.0); TOTAL PROTEIN 7.2 g/dL (6.3-8.2)
[2019-06-14] MEDS ORDERED: LEVONORGESTREL 1.5 MG TABLET (1 TAB/ER-USE) PO ONE (10:11)
[2019-06-14] MEDS ORDERED: METRONIDAZOLE 500 MG TABLET PO ONE (10:11)
[2019-06-14] MEDS ORDERED: PROMETHAZINE HCL 25 MG TABLET PO ONE (10:11)
[2019-06-14] MEDS ORDERED: LIDOCAINE 1% INJ-PF (10 MG/ML) 30 ML SDV INJ ONE (10:11)
[2019-06-14] MEDS ORDERED: CEFTRIAXONE INJ 250 MG VIAL IM ONE (10:11)
[2019-06-14] MEDS ORDERED: AZITHROMYCIN 250 MG TABLET PO ONE (10:11)
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
[2019-06-14 11:13] LABS: CHLAM PCR NOT DETECTED (NOT DETECT)
[2019-06-14] MEDS ORDERED: ONDANSETRON ODT 4 MG TAB (6 TAB/ER DISP) PO PRN (11:43)
[2019-06-14 12:02] VITALS: BP 149/89
== END 2019-06-14 12:02 | disposition home or self-care (01) ==
LOC: ER 07:05
DX: T76.21XA Adult sexual abuse, suspected, initial encounter (principal); X58.XXXA Exposure to other specified factors, initial encounter; Y92.039 Unspecified place in apartment as the place of occurrence of the external cause; Z88.2 Allergy status to sulfonamides
CPT/HCPCS: 36415; 85025; 81025; 86592; 80053; 86701; 87491; 87591; 80074; A9270; J3490; J0696

== ENCOUNTER → 2019-10-15 | Outpatient (CLI) | payer MEDICAID | LOC: OD 12:04 | PROVIDERS: ATTEND Family Medicine | DX: N92.6 Irregular menstruation, unspecified (principal) | CPT/HCPCS: 36415; 84703 ==